=== PATIENT | female | born 1995 | race African-American/Black ===

== ENCOUNTER 2018-08-01 16:00 | Emergency (ER) | payer SELFPAY ==
[~2018-08-01] VITALS: Ht 172.7 cm; Wt 141.4 kg
[2018-08-01 16:06] VITALS: Ht 172.7 cm; Wt 141.4 kg
[2018-08-01 16:53] LABS: BASOPHILS 0.4 % (0-2); EOSINOPHILS 6.4 % (0-7); HEMATOCRIT 42.5 % (36.0-48.0); IMMATURE GRANULOCYTES 0.1 % (0-5); LYMPHOCYTES 27.1 % (15-50); MCH 28.7 pg (26.0-34.0); MCHC 32.9 g/dL (31.0-37.0); MCV 87.3 fL (80.0-100.0); MEAN PLATELET VOLUME 9.3 fL (7.4-10.4); MONOCYTES 6.1 % (2-11); NEUTROPHILS 59.9 % (40-80); PLATELET COUNT 334 10x3/uL (130-400); RBC 4.87 10x6/uL (4.00-5.40); RDW 13.4 % (11.5-14.5); WBC 6.7 10x3/uL (4.8-10.8)
[2018-08-01 17:07] LABS: APPEARANCE HAZY (CLEAR); BILIRUBIN NEGATIVE (NEGATIVE); COLOR YELLOW (YELLOW); GLUCOSE NEGATIVE (NEGATIVE); KETONE NEGATIVE (NEGATIVE); NITRITE NEGATIVE (NEGATIVE); PROTEIN NEGATIVE (NEGATIVE); UROBILINOGEN NORMAL (NORMAL)
[2018-08-01 17:08] LABS: RED CELLS - URINE 0-5 /hpf (0-5); WHITE CELLS - URINE 25-50 /hpf (0-5)
[2018-08-01 17:09] LABS: BACTERIA MANY /hpf (NONE SEEN); MUCUS <1+ /lpf (NONE SEEN)
[2018-08-01 17:17] LABS: ALBUMIN 2.9 g/dL (3.4-5.0); ANION GAP 14.5 mmol/L (8-16); BILIRUBIN - TOTAL 0.28 mg/dL (0.2-1.3); CALCIUM 8.2 mg/dL (8.5-10.1); CARBON DIOXIDE 24.5 mmol/L (21.0-32.0); PROTEIN - SERUM 6.6 g/dL (6.4-8.2)
[2018-08-01] MEDS ORDERED: KEFLEX500 MG PO (18:21)
[2018-08-01 19:03] VITALS: BP 141/74
[2018-08-01 19:23] LABS: HCG URINE NEGATIVE (NEGATIVE)
== END 2018-08-01 19:04 | disposition home or self-care (01) ==
LOC: D.ER 16:00
PROVIDERS: Family Medicine
DX: R10.9 Unspecified abdominal pain (principal); N39.0 Urinary tract infection, site not specified

== ENCOUNTER 2018-12-16 02:43 | Emergency (ER) | payer SELFPAY ==
[~2018-12-16] VITALS: Ht 172.7 cm; Wt 140.9 kg
[~2018-12-16 02:43] MED LIST: KEFLEX500 MG PO
[2018-12-16 02:55] VITALS: Ht 172.7 cm; Wt 140.9 kg
[2018-12-16] MEDS ORDERED: ULTRAM50 MG PO (04:58)
[2018-12-16 05:58] VITALS: BP 128/74
== END 2018-12-16 06:02 | disposition home or self-care (01) ==
LOC: D.ER 02:43
DX: S93.402A Sprain of unspecified ligament of left ankle, initial encounter (principal); S93.401A Sprain of unspecified ligament of right ankle, initial encounter; W13.3XXA Fall through floor, initial encounter; Y93.89 Activity, other specified; Y92.019 Unspecified place in single-family (private) house as the place of occurrence of the external cause

== ENCOUNTER 2019-05-07 12:30 | Emergency (ER) | payer MEDICAID ==
[~2019-05-07] VITALS: Ht 172.7 cm; Wt 137.7 kg
[~2019-05-07 12:30] MED LIST changes: +ULTRAM50 MG PO
[2019-05-07 12:43] VITALS: BP 134/70; Ht 172.7 cm; Wt 137.7 kg
[2019-05-07 16:38] LABS: BASOPHILS 0.7 % (0-2); HEMATOCRIT 42.6 % (36.0-48.0); MCH 29.1 pg (26.0-34.0); MCHC 32.9 g/dL (31.0-37.0); MCV 88.6 fL (80.0-100.0); MEAN PLATELET VOLUME 9.3 fL (7.4-10.4); MONOCYTES 10.1 % (2-11); NEUTROPHILS 51.2 % (40-80); PLATELET COUNT 294 10x3/uL (130-400); RBC 4.81 10x6/uL (4.00-5.40); RDW 12.4 % (11.5-14.5); WBC 5.5 10x3/uL (4.8-10.8)
[2019-05-07 16:44] LABS: CALC OSMOLALITY 271 mosm/kg (275-300); CALCIUM 8.5 mg/dL (8.5-10.1); CARBON DIOXIDE 27.6 mmol/L (21.0-32.0); CHLORIDE - SERUM 103 mmol/L (98-107); CREATININE - SERUM 0.9 mg/dL (0.6-1.3); GLUCOSE 97 mg/dL (74-106); SODIUM 137 mmol/L (136-145); UREA NITROGEN 8 mg/dL (7-18); eGFR NON AFRICAN AMERICAN 81 mL/min (90-120)
[2019-05-07 16:50] LABS: ALBUMIN 3.3 g/dL (3.4-5.0); ALKALINE PHOSPHATASE 64 U/L (46-116); ALT (SGPT) 30 U/L (10-68); BILIRUBIN - TOTAL 0.26 mg/dL (0.2-1.3); PROTEIN - SERUM 7.5 g/dL (6.4-8.2)
[2019-05-07] MEDS ORDERED: ALBUTEROL SULF8.5 GM INH (17:06)
[2019-05-07] MEDS ORDERED: VIBRAMYCIN 100100 MG PO (17:06)
== END 2019-05-07 17:40 | disposition home or self-care (01) ==
LOC: D.ER 12:30
PROVIDERS: Family Medicine
DX: J18.9 Pneumonia, unspecified organism (principal); R51 Headache

== ENCOUNTER 2020-09-24 07:06 | Emergency (ER) | payer OTHER ==
[~2020-09-24] VITALS: Ht 172.7 cm; Wt 156.8 kg
[~2020-09-24 07:06] MED LIST changes: +ALBUTEROL SULF8.5 GM INH; +MEDROL DOSE PACK4 MG PO; +VIBRAMYCIN 100100 MG PO; +ZPAK PO
[2020-09-24 07:10] VITALS: BP 157/98; Ht 172.7 cm; Wt 156.8 kg
[2020-09-24 07:54] LABS: ANION GAP 12.3 mmol/L (8-16); CALCIUM 9.2 mg/dL (8.5-10.1); CARBON DIOXIDE 25.8 mmol/L (21.0-32.0); CREATININE - SERUM 1.1 mg/dL (0.6-1.3); POTASSIUM - SERUM 4.1 mmol/L (3.5-5.1)
[2020-09-24 07:56] LABS: BASOPHILS 0.4 % (0-2); EOSINOPHILS 3.4 % (0-7); HEMATOCRIT 44.2 % (36.0-48.0); HEMOGLOBIN 14.4 g/dL (12-16); IMMATURE GRANULOCYTES 0.3 % (0-5); LYMPHOCYTE ABS# 2.92 10x3/uL (1.18-3.74); LYMPHOCYTES 25.8 % (15-50); MCH 28.9 pg (26.0-34.0); MCHC 32.6 g/dL (31.0-37.0); MCV 88.8 fL (80.0-100.0); MEAN PLATELET VOLUME 9.6 fL (7.4-10.4); MONOCYTES 7.6 % (2-11); NEUTROPHIL ABS# 7.08 10x3/uL (1.56-6.13); NEUTROPHILS 62.5 % (40-80); PLATELET COUNT 361 10x3/uL (130-400); RBC 4.98 10x6/uL (4.00-5.40); RDW 12.7 % (11.5-14.5); WBC 11.3 10x3/uL (4.8-10.8)
[2020-09-24 08:01] LABS: ALBUMIN 3.5 g/dL (3.4-5.0); BILIRUBIN - TOTAL 0.22 mg/dL (0.2-1.3); PROTEIN - SERUM 8.1 g/dL (6.4-8.2)
[2020-09-24] MEDS ORDERED: MEDROL DOSE PACK4 MG PO (08:15)
[2020-09-24] MEDS ORDERED: ZYRTEC10 MG PO (08:15)
[2020-09-24] MEDS ORDERED: TESSALON PERLE100 MG PO (08:19)
[2020-09-24] MEDS ORDERED: IPRATROPIUM BRO15 M1 NASAL (08:20)
== END 2020-09-24 08:30 | disposition home or self-care (01) ==
LOC: D.ER 07:06
PROVIDERS: Family Medicine
DX: J40 Bronchitis, not specified as acute or chronic (principal); R06.02 Shortness of breath; R05 Cough; F17.200 Nicotine dependence, unspecified, uncomplicated; R68.89 Other general symptoms and signs; J30.2 Other seasonal allergic rhinitis